=== PATIENT | male | born 1935 | race Caucasian/White ===

== ENCOUNTER → 2019-11-07 | Outpatient (CLI) | payer MEDICARE, OTHER ==
[~2019-11-07] MED LIST: ANUSOL HC CREAM30 GM TP; ATORVASTATIN; LEVOTHYROXINE PO; NEXIUM PO
== END ==
LOC: COL.RAD 14:15
DX: M25.511 Pain in right shoulder (principal)
CPT/HCPCS: J3301; Q9967